=== PATIENT | male | born 1990 | race Hispanic/Latino ===

== ENCOUNTER 2018-04-16 00:46 | Emergency (ER) | payer OTHER ==
[~2018-04-16] VITALS: Ht 167.6 cm; Wt 69.9 kg
== END 2018-04-16 01:35 | disposition home or self-care (01) ==
LOC: ER 00:46
DX: S30.812A Abrasion of penis, initial encounter (principal); X50.3XXA Overexertion from repetitive movements, initial encounter
CPT/HCPCS: 99282